=== PATIENT | female | born 1990 | race Caucasian/White ===

== ENCOUNTER 2018-10-12 08:43 | Emergency (ER) | payer SELFPAY ==
[2018-10-12 09:01] VITALS: BP 125/77
--- NOTE | 2018-10-12 09:43 | UC ---
Throat Pain/Nasal Ambrose HPI - HPI Summary HPI Summary: patient has had increased right side sinus pressure, ear pain and now pain in her right neck for the last week. has had to go to work and not slowed down, been taking dayquil - History of Current Complaint Chief Complaint: UCGeneralIllness Stated Complaint: SORE THROAT, COUGH, BODY ACHES Time Seen by Provider: 10/12/18 09:36 Hx Obtained From: Patient Hx Last Menstrual Period: Mirana ?: No Onset/Duration: Sudden Onset, Lasting Days Severity: Moderate Pain Intensity: 3 Associated Signs & Symptoms: Positive: Sinus Discomfort, Nasal Discharge - Allergies/Home Medications Allergies/Adverse Reactions: Allergies Allergy/AdvReac Type Severity Reaction Status Date / Time No Known Allergies Allergy Verified 10/12/18 09:01 PMH/Surg Hx/FS Hx/Imm Hx Previously Healthy: Yes - Surgical History Surgical History: Yes Surgery Procedure, Year, and Place: gallbladder removed - Family History Known Family History: Negative: Cardiac Disease, Hypertension - Social History Alcohol Use: Occasionally Substance Use Type: Marijuana Smoking Status (MU): Never Smoked Tobacco Review of Systems All Other Systems Reviewed And Are Negative: Yes Constitutional: Positive: Negative Skin: Positive: Negative Eyes: Positive: Negative ENT: Positive: Sore Throat, Ear Ache, Nasal Discharge, Sinus Pain/Tenderness - right maxillary Respiratory: Positive: Cough Cardiovascular: Positive: Negative Gastrointestinal: Positive: Negative Genitourinary: Positive: Negative Motor: Positive: Negative Neurovascular: Positive: Negative Musculoskeletal: Positive: Negative Neurological: Positive: Headache Psychological: Positive: Negative Is Patient Immunocompromised?: No Physical Exam Triage Information Reviewed: Yes Appearance: Well-Nourished, Ill-Appearing, Pain Distress Vital Signs: Initial Vital Signs Temp 97.7 F 10/12/18 08:56 Pulse 100 10/12/18 08:56 Resp 17 10/12/18 08:56 BP 125/77 10/12/18 08:56 Pulse Ox 100 10/12/18 08:56 Vital Signs Reviewed: Yes Eye Exam: Normal ENT: Positive: Pharyngeal erythema, Nasal congestion, Nasal drainage, TM bulging - right, Sinus tenderness Dental Exam: Normal Neck: Positive: Enlarged Nodes @ - right cervical Respiratory Exam: Normal Respiratory: Positive: Chest non-tender, Lungs clear, Normal breath sounds Cardiovascular Exam: Normal Cardiovascular: Positive: RRR, No Murmur Abdominal Exam: Normal Musculoskeletal Exam: Normal Neurological Exam: Normal Psychological Exam: Normal Skin Exam: Normal Throat Pain/Nasal Course/Dx - Course Course Of Treatment: hx obtained, exam performed ,meds reviewed, treated for sinusitis - Differential Dx/Diagnosis Differential Diagnosis/HQI/PQRI: Laryngitis, Otitis Media, Pharyngitis, Sinusitis, URI Provider Diagnosis: Right maxillary sinusitis, Serous otitis media Discharge - Sign-Out/Discharge Documenting (check all that apply): Patient Departure All imaging exams completed and their final reports reviewed: No Studies - Discharge Plan Condition: Stable Disposition: HOME Prescriptions: Amoxicillin PO (*) [Amoxicillin 875 MG (*)] 875 mg PO BID #20 tab Patient Education Materials: Sinusitis (ED) Forms: *Work Release Referrals: No Primary Care Phys,NOPCP [Primary Care Provider] - Additional Instructions: 1. Increase fluid intake 2. GET REST 3. Take the medication as prescribed 4. Follow up as needed. - Billing Disposition and Condition Condition: STABLE Disposition: Home - Attestation Statements Provider Attestation: Per institutional requirements, I have reviewed the chart, however, I was not consulted specifically or made aware of this patient by the midlevel provider. I did not personally evaluate, interact with , or disposition this patient.
== END 2018-10-12 09:48 | disposition home or self-care (01) ==
LOC: UCCORT 08:43
DX: J32.0 Chronic maxillary sinusitis (principal); H65.91 Unspecified nonsuppurative otitis media, right ear
CPT/HCPCS: 99202; G0463

== ENCOUNTER 2019-09-29 12:53 | Emergency (ER) | payer OTHER ==
[2019-09-29] MEDS ORDERED: Fluorescein Sodium TOPICAL* 1 MG TEST STRIP OPHTHALMIC ONE (13:58)
[2019-09-29 14:01] VITALS: BP 122/79
--- NOTE | 2019-09-29 14:19 | UC ---
Eye Complaint HPI - HPI Summary HPI Summary: 29 yo with right eye irritation which began this morning after possible dust exposure when an object fell and scattered dust around. Normal visual acuity. Has been flushing the eye with visine without relief. - History of Current Complaint Chief Complaint: UCEye Stated Complaint: WC- FB IN EYE Time Seen by Provider: 09/29/19 13:58 Hx Obtained From: Patient Hx Last Menstrual Period: mirena iud Onset/Duration: Sudden Onset, Lasting Hours Timing: Constant Severity Initially: Moderate Severity Currently: Moderate Pain Intensity: 5 Location of Injury: Conjunctiva, Eye Lid (upper) - sense of foreign body Character: Sharp, Foreign Body Sensation Aggravating Factor(s): Blinking Alleviating Factor(s): Nothing Associated Signs And Symptoms: Positive: Drainage (Clear) - Risk Factors Penetrating Injury Risk Factor: Negative Globe Rupture Risk Factors: Negative Acute Glaucoma Risk Factors: Negative Optic Artery Occlusion Risk Factors: Negative - Allergies/Home Medications Allergies/Adverse Reactions: Allergies Allergy/AdvReac Type Severity Reaction Status Date / Time No Known Allergies Allergy Verified 09/29/19 13:57 Home Medications: Home Medications Levonorgestrel (Iud) [Mirena IUD] 1 implant ONCE 09/29/19 [History Confirmed ] PMH/Surg Hx/FS Hx/Imm Hx Previously Healthy: Yes - Surgical History Surgical History: Yes Surgery Procedure, Year, and Place: gallbladder removed. hernia - Family History Known Family History: Negative: Cardiac Disease, Hypertension - Social History Occupation: Employed Full-time Alcohol Use: Occasionally Substance Use Type: Marijuana Smoking Status (MU): Never Smoked Tobacco Review of Systems All Other Systems Reviewed And Are Negative: Yes Constitutional: Positive: Negative Skin: Positive: Negative Eyes: Positive: Eye Redness ENT: Positive: Negative Respiratory: Positive: Negative Cardiovascular: Positive: Negative Gastrointestinal: Positive: Negative Genitourinary: Positive: Negative Motor: Positive: Negative Neurovascular: Positive: Negative Musculoskeletal: Positive: Negative Neurological: Positive: Negative Psychological: Positive: Negative Is Patient Immunocompromised?: No Physical Exam Triage Information Reviewed: Yes Appearance: Well-Appearing, No Pain Distress Vital Signs: Initial Vital Signs Temp 98.6 F 09/29/19 13:58 Pulse 79 09/29/19 13:58 Resp 16 09/29/19 13:58 BP 122/79 09/29/19 13:58 Pulse Ox 100 09/29/19 13:58 Eye Exam: Other - ANDREW without photophobia. Mild upper lid swelling and meryl- orbital erythema. No fluorescine uptake. Lid flipped, no FB seen. Eyes: Positive: Conjunctiva Inflamed, Other: - Eye flushed with 20cc of normal saline with almost complete relief of symptoms. ENT: Positive: Pharynx normal Neck: Positive: Supple, Nontender, No Lymphadenopathy Respiratory: Positive: Lungs clear, Normal breath sounds Cardiovascular: Positive: RRR, No Murmur Musculoskeletal Exam: Normal Neurological Exam: Normal Psychological Exam: Normal Skin Exam: Normal Eye Complaint Course/Dx - Course Course Of Treatment: antibiotic drops for prevention of conjunctivitis - Differential Dx/Diagnosis Differential Diagnosis/HQI/PQRI: Conjunctivitis, Corneal Abrasion, Foreign Body Provider Diagnosis: Foreign body of right eyelid Discharge ED - Sign-Out/Discharge Documenting (check all that apply): Patient Departure All imaging exams completed and their final reports reviewed: No Studies - Discharge Plan Condition: Stable Disposition: HOME Patient Education Materials: Eye Foreign Body (ED) Referrals: No Primary Care Phys,NOPCP [Primary Care Provider] - Additional Instructions: There is no corneal abrasion evident on today's exam. Use antibiotic drops for prevention of infection in the eye. Compress every 4 hours or so to decrease the swelling in the eyelid. - Billing Disposition and Condition Condition: STABLE Disposition: Home
[2019-09-29] MEDS ORDERED: Polymyx/Trimethoprim OPTH* 10 ML BTL RIGHT EYE ONE (14:22)
== END 2019-09-29 14:35 | disposition home or self-care (01) ==
LOC: UCCORT 12:53
DX: T15.81XA Foreign body in other and multiple parts of external eye, right eye, initial encounter (principal); X58.XXXA Exposure to other specified factors, initial encounter; Y92.9 Unspecified place or not applicable
CPT/HCPCS: 99212; A9270-GY; G0463